=== PATIENT | female | born 1950 | race Hispanic/Latino ===

== ENCOUNTER → 2018-06-09 | Outpatient (CLI) | payer MEDICARE | END | disposition home or self-care (01) | LOC: RAH 14:06 | PROVIDERS: ATTEND Physical Medicine & Rehabilitation | DX: M19.011 Primary osteoarthritis, right shoulder (principal); M75.41 Impingement syndrome of right shoulder; M75.91 Shoulder lesion, unspecified, right shoulder | CPT/HCPCS: 73030 ==

== ENCOUNTER → 2018-12-31 | Outpatient (CLI) | payer MEDICARE | END | disposition home or self-care (01) | LOC: RAH 12:18 | PROVIDERS: ATTEND Physical Medicine & Rehabilitation | DX: M47.22 Other spondylosis with radiculopathy, cervical region (principal); M75.101 Unspecified rotator cuff tear or rupture of right shoulder, not specified as traumatic; M19.011 Primary osteoarthritis, right shoulder; M25.711 Osteophyte, right shoulder; M25.78 Osteophyte, vertebrae; M89.38 Hypertrophy of bone, other site | CPT/HCPCS: 72141; 73221 ==

== ENCOUNTER → 2020-07-14 | Outpatient (CLI) | payer MEDICARE | END | disposition home or self-care (01) | LOC: RAH 10:27 | PROVIDERS: ATTEND Internal Medicine | DX: R63.3 Feeding difficulties (principal); R13.10 Dysphagia, unspecified | CPT/HCPCS: 74230; 92611 ==

== ENCOUNTER → 2021-05-17 | Outpatient (CLI) | payer MEDICARE | END | disposition home or self-care (01) | LOC: SHCH 14:56 | PROVIDERS: ATTEND Internal Medicine Cardiovascular Disease | DX: I87.2 Venous insufficiency (chronic) (peripheral) (principal) | CPT/HCPCS: 93970 ==

== ENCOUNTER → 2021-07-12 | Outpatient (CLI) | payer MEDICARE | END | disposition home or self-care (01) | LOC: SHCH 14:01 | PROVIDERS: ATTEND Internal Medicine Cardiovascular Disease | DX: I51.7 Cardiomegaly (principal); E66.9 Obesity, unspecified | CPT/HCPCS: 93306 ==

== ENCOUNTER → 2021-09-05 | Outpatient (CLI) | payer MEDICARE | END | disposition home or self-care (01) | LOC: RAH 09:59 | PROVIDERS: ATTEND Internal Medicine Gastroenterology | DX: R13.10 Dysphagia, unspecified (principal); R13.11 Dysphagia, oral phase; R63.30 Feeding difficulties, unspecified; R63.4 Abnormal weight loss; Z63.32 Other absence of family member | CPT/HCPCS: 74230; 92611 ==

== ENCOUNTER 2021-10-02 22:48 | Emergency (ER) | payer MEDICARE ==
[~2021-10-02] VITALS: Ht 154.9 cm; Wt 66.7 kg
[2021-10-02 22:59] VITALS: BP 176/70
[2021-10-02 23:46] LABS: APPEARANCE,URINE CLEAR (CLEAR); BILIRUBIN,URINE NEGATIVE (NEGATIVE); COLOR,URINE YELLOW (YELLOW); GLUCOSE, URINE (UA) NEGATIVE (NEGATIVE); KETONES,URINE NEGATIVE (NEGATIVE); LEUKOCYTE ESTERASE ,URINE TRACE (NEGATIVE); NITRATE,URINE POSITIVE (NEGATIVE); OCCULT BLOOD,URINE NEGATIVE (NEGATIVE); PROTEIN,URINE NEGATIVE (NEGATIVE); UROBILINOGEN,URINE 0.2 mg/dL (0.2-1.0)
[2021-10-02 23:54] LABS: BASOPHILS % (AUTO) 0.4 % (0.0-5.0); EOSINOPHILS % (AUTO) 3.4 % (0.0-8.0); HEMATOCRIT 33.5 % (36-48); LYMPHOCYTES % (AUTO) 41.1 % (21.0-51.0); MEAN CORPUSCULAR HEMOGLOBIN 31.3 pg (27.0-33.0); MEAN CORPUSCULAR HGB CONC 33.7 g/dL (32.0-36.0); MEAN CORPUSCULAR VOLUME 92.8 fL (79-99); MONOCYTES % (AUTO) 11.6 % (3.0-13.0); NEUTROPHILS % (AUTO) 43.2 % (40.0-77.0); PLATELET COUNT (AUTO) 199 K/uL (130-400); RED BLOOD CELL COUNT(AUTO) 3.61 MIL/uL (4.00-5.50); RED CELL DISTRIBUTION WIDTH 13.1 % (11.0-15.5)
[2021-10-03] LABS: BACTERIA,URINE Few /HPF (None Seen); MUCUS,URINE Few LPF (None Seen); RBC,URINE 0-1 /HPF (0-1); SQUAMOUS EPITHELIAL CELL,UR 0-2 /HPF (0-2)
[2021-10-03] MEDS ORDERED: 0.9% NACL 500ML IV.SOLN 500 ML IV ONE
[2021-10-03] MEDS ORDERED: ONDANSETRON 4MG INJ IVP ONE
[2021-10-03 00:05] LABS: CREATININE 0.8 mg/dL (0.5-1.5); POTASSIUM 4.5 mmol/L (3.5-5.1)
[2021-10-03 00:11] LABS: ALBUMIN 3.7 g/dL (3.5-5.0); TOTAL PROTEIN, SERUM 7.7 g/dL (6.0-8.3)
[2021-10-03] MEDS ORDERED: CEPH500B PO (01:15)
[2021-10-03] MEDS ORDERED: CEPHALEXIN 500 MG CAPSULE PO ONE (01:30)
== END 2021-10-03 01:30 | disposition home or self-care (01) ==
LOC: EDH 22:48
DX: N39.0 Urinary tract infection, site not specified (principal); G93.40 Encephalopathy, unspecified; Z20.822 Contact with and (suspected) exposure to COVID-19; E03.9 Hypothyroidism, unspecified; E11.9 Type 2 diabetes mellitus without complications; E78.00 Pure hypercholesterolemia, unspecified; G20 Parkinson's disease; J45.909 Unspecified asthma, uncomplicated; Z87.440 Personal history of urinary (tract) infections; Z88.1 Allergy status to other antibiotic agents; Z88.2 Allergy status to sulfonamides; Z90.49 Acquired absence of other specified parts of digestive tract
CPT/HCPCS: 99285; 70450; 71045; 87635; 84484; 80053; 85025; 87088; 87804 ×2; 81001; 36415; 93005; 74176; 96374; C9803; J7040; J2405

== ENCOUNTER 2021-11-25 22:17 | Emergency (ER) | payer MEDICARE ==
[~2021-11-25] VITALS: Ht 154.9 cm; Wt 63.5 kg
[~2021-11-25 22:17] MED LIST: CEPH500B PO
[2021-11-25 22:58] LABS: BASOPHILS % (AUTO) 0.2 % (0.0-5.0); EOSINOPHILS % (AUTO) 0.1 % (0.0-8.0); LYMPHOCYTES % (AUTO) 6.7 % (21.0-51.0); MEAN CORPUSCULAR HEMOGLOBIN 31.1 pg (27.0-33.0); MEAN CORPUSCULAR HGB CONC 34.2 g/dL (32.0-36.0); MEAN CORPUSCULAR VOLUME 90.9 fL (79-99); MONOCYTES % (AUTO) 6.4 % (3.0-13.0); NEUTROPHILS % (AUTO) 85.5 % (40.0-77.0); PLATELET COUNT (AUTO) 172 K/uL (130-400); RED BLOOD CELL COUNT(AUTO) 3.41 MIL/uL (4.00-5.50); RED CELL DISTRIBUTION WIDTH 13.3 % (11.0-15.5)
[2021-11-25] MEDS ORDERED: ACETAMINOPHEN 500 MG TABLET PO ONE (23:00)
[2021-11-25 23:06] LABS: CREATININE 0.7 mg/dL (0.5-1.5); POTASSIUM 3.6 mmol/L (3.5-5.1)
[2021-11-25 23:11] LABS: ALBUMIN 3.6 g/dL (3.5-5.0); CRP QUANTITATIVE 114.6 mg/L (0.00-9.0); TOTAL PROTEIN, SERUM 7.6 g/dL (6.0-8.3)
[2021-11-25] MEDS ORDERED: AZITHROMYCIN 250 MG TABLET PO ONE (23:30)
[2021-11-25] MEDS ORDERED: CEFTRIAXONE 1G VIAL IVP ONE (23:30)
[2021-11-25 23:41] LABS: APPEARANCE,URINE CLOUDY (CLEAR); BILIRUBIN,URINE NEGATIVE (NEGATIVE); COLOR,URINE YELLOW (YELLOW); GLUCOSE, URINE (UA) NEGATIVE (NEGATIVE); KETONES,URINE NEGATIVE (NEGATIVE); LEUKOCYTE ESTERASE ,URINE 500 Leu/uL (NEGATIVE); NITRATE,URINE NEGATIVE (NEGATIVE); OCCULT BLOOD,URINE MODERATE (NEGATIVE); PROTEIN,URINE NEGATIVE (NEGATIVE); UROBILINOGEN,URINE 0.2 mg/dL (0.2-1.0)
[2021-11-25 23:48] LABS: BACTERIA,URINE FEW /HPF (None Seen); MUCUS,URINE RARE LPF (None Seen); OTHER CASTS, URINE 1 /LPF (None Seen); SQUAMOUS EPITHELIAL CELL,UR RARE /HPF (0-2); TRANSITIONAL EPI CELLS,URINE RARE /HPF (None Seen); WBC,URINE TNTC /HPF (0-1)
[2021-11-25] MEDS ORDERED: CEFU500T67 PO (23:51)
[2021-11-25] MEDS ORDERED: ONDANSETRON 4MG INJ ONE (23:53)
[2021-11-26] MEDS ORDERED: ONDANSETRON 4MG INJ IVP ONE
[2021-11-26 00:36] VITALS: BP 151/53
[2021-11-29] MEDS ORDERED: MONT-39 PO (05:36)
[2021-11-29] MEDS ORDERED: CARB1TAB35 PO (05:36)
[2021-11-29] MEDS ORDERED: CARB1TAB42 PO (05:36)
[2021-11-29] MEDS ORDERED: BISA-107 PO (05:46)
[2021-11-29] MEDS ORDERED: BUDE10.2 IH (05:46)
[2021-11-29] MEDS ORDERED: ROPI0.5T7 PO (07:36)
[2021-11-29] MEDS ORDERED: LEVO25TA54 PO (07:37)
[2021-11-29] MEDS ORDERED: ALBU90AE IH (07:43)
[2021-11-29] MEDS ORDERED: LACT10SO62 PO (07:43)
[2021-11-29] MEDS ORDERED: NAPR-1023 PO (07:48)
[2021-11-29] MEDS ORDERED: PROM25TA7 PO (07:48)
[2021-11-29] MEDS ORDERED: VIT B COMPLEX PO (07:58)
[2021-11-29] MEDS ORDERED: VIT D3 PO (07:58)
[2021-11-29] MEDS ORDERED: FLUT16H NASAL (07:58)
[2021-11-29] MEDS ORDERED: VENL25TA46 PO (07:58)
[2021-11-29] MEDS ORDERED: ACET-66 PO (08:02)
[2021-11-29] MEDS ORDERED: PROBIOTIC PO (08:02)
== END 2021-11-26 00:39 | disposition home or self-care (01) ==
LOC: EDH 22:17
DX: N39.0 Urinary tract infection, site not specified (principal); E86.0 Dehydration; G20 Parkinson's disease; Z20.822 Contact with and (suspected) exposure to COVID-19; F02.80 Dementia in other diseases classified elsewhere, unspecified severity, without behavioral disturbance, psychotic disturbance, mood disturbance, and anxiety; E11.9 Type 2 diabetes mellitus without complications; E78.00 Pure hypercholesterolemia, unspecified; I10 Essential (primary) hypertension; Z90.89 Acquired absence of other organs; Z98.890 Other specified postprocedural states; Z88.2 Allergy status to sulfonamides; Z88.1 Allergy status to other antibiotic agents; Z88.8 Allergy status to other drugs, medicaments and biological substances
CPT/HCPCS: 99285; 70450; 96374; 71045; 87635; 96375; 84484; 80053; 85025; 87040 ×2; 87077; 87088; 87186; 87880; 87804 ×2; 83605; 86140; 81001; 36415; 74176; 93005; C9803; J0696; J2405

== ENCOUNTER 2022-02-06 08:59 | Emergency (ER) | payer MEDICARE ==
[~2022-02-06 08:59] MED LIST changes: +BISA-107 PO; +BUDE10.2 IH; +CARB1TAB35 PO; +CARB1TAB42 PO; -CEPH500B PO; +FLUT16H NASAL; +LEVO25TA54 PO; +MONT-39 PO; +NAPR-1023 PO; +ROPI0.5T7 PO; +VENL25TA46 PO; +VIT B COMPLEX PO; +VIT D3 PO
[2022-02-06 09:23] LABS: BASOPHILS % (AUTO) 0.5 % (0.0-5.0); EOSINOPHILS % (AUTO) 0.6 % (0.0-8.0); HEMATOCRIT 35.9 % (36-48); LYMPHOCYTES % (AUTO) 15.6 % (21.0-51.0); MEAN CORPUSCULAR HEMOGLOBIN 31.4 pg (27.0-33.0); MEAN CORPUSCULAR HGB CONC 33.1 g/dL (32.0-36.0); MEAN CORPUSCULAR VOLUME 94.7 fL (79-99); NEUTROPHILS % (AUTO) 74.8 % (40.0-77.0); PLATELET COUNT (AUTO) 183 K/uL (130-400); RED BLOOD CELL COUNT(AUTO) 3.79 MIL/uL (4.00-5.50); RED CELL DISTRIBUTION WIDTH 13.8 % (11.0-15.5); WHITE BLOOD COUNT (AUTO) 7.8 K/uL (4.8-10.8)
[2022-02-06 09:38] LABS: ALBUMIN 3.6 g/dL (3.5-5.0); CREATININE 0.8 mg/dL (0.5-1.5); POTASSIUM 3.7 mmol/L (3.5-5.1); TOTAL PROTEIN, SERUM 7.7 g/dL (6.0-8.3)
[2022-02-06] MEDS ORDERED: IPRATROPIUM/ALBUTEROL SULFATE 3 ML SOLUTION IH ONE ×2 (11:00→17:00)
[2022-02-06] MEDS ORDERED: IOHEXOL 350 MG/ML 100ML INFUS..BTL IV ONE (11:10)
[2022-02-06 12:45] LABS: ABG BASE EXCESS 0.4 mmol/L (-2.0-3.0); ABG HCO3 23.6 mmol/L (21.0-28.0); ABG OXYGEN SATURATION 95.9 % (95.0-99.0); ABG PCO2 34 mmHg (32-45)
[2022-02-06] MEDS ORDERED: CEFTRIAXONE 2GM VIAL IVP ONE (13:30)
[2022-02-06] MEDS ORDERED: RACEPINEPHRINE HCL 2.25% 0.5 ML NEB SOLN NEB ONE (17:50)
[2022-02-06 18:28] VITALS: BP 142/58
== END 2022-02-06 21:35 | disposition short-term general hospital (02) ==
LOC: EDH 08:59
DX: J18.1 Lobar pneumonia, unspecified organism (principal); N39.0 Urinary tract infection, site not specified; E03.9 Hypothyroidism, unspecified; F32.A Depression, unspecified; F41.9 Anxiety disorder, unspecified; K21.9 Gastro-esophageal reflux disease without esophagitis; M19.90 Unspecified osteoarthritis, unspecified site; Z79.1 Long term (current) use of non-steroidal anti-inflammatories (NSAID); Z79.51 Long term (current) use of inhaled steroids; Z88.1 Allergy status to other antibiotic agents; Z88.2 Allergy status to sulfonamides; Z90.49 Acquired absence of other specified parts of digestive tract
CPT/HCPCS: 99285; 70450; 96374; 71045; 84484; 80053; 82803; 83880; 85025; 85378; 82948; 36415; 71270; 93005; 36600; 94640 ×3; J0696; Q9967